=== PATIENT | male | born 2000 | race Two or more races ===

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

== ENCOUNTER 2023-11-02 20:01 | Emergency (ER) | payer OTHER ==
[~2023-11-02] VITALS: Ht 182.9 cm; Wt 80.3 kg
[2023-11-02 20:47] VITALS: BP 157/72; PULSE 112; RESP 22; TEMP 97.7; O2SAT 96
== END 2023-11-02 20:56 ==
LOC: ER 20:01
DX: F19.10 Other psychoactive substance abuse, uncomplicated (principal); F17.210 Nicotine dependence, cigarettes, uncomplicated; F12.10 Cannabis abuse, uncomplicated; F14.10 Cocaine abuse, uncomplicated